=== PATIENT | female | born 1960 | race African-American/Black ===

== ENCOUNTER 2025-07-02 12:02 | Outpatient (CLI) | payer MEDICARE, MEDICAID, SELFPAY ==
[2025-07-02 13:26] LABS: Hematocrit 40.4 % (37.0-47.0); Hemoglobin 12.7 g/dL (12.0-15.0); Immature Granulocyte Percent A 0.1 % (0-0.5); Lymphocytes Absolute Auto 3.52 K/mm3 (0.9-3.2); Mean Corpuscular HGB Conc 31.4 g/dl (32-36); Mean Corpuscular Hemoglobin 26.8 pg (26-34); Mean Corpuscular Volume 85.4 fl (80-100); Nucleated Red Blood Cells Absolute Auto 0.000 K/mm3 (0.0-0.012); Nucleated Red Blood Cells Perc 0.0 % (0.0-0.2); Platelet Count Result 264 k/mm3 (150-375); Red Blood Count 4.73 M/mm3 (4.2-5.4); White Blood Count 6.8 K/mm3 (4.5-10.0)
[2025-07-02 13:42] LABS: Albumin Level 4.4 g/dL (3.5-5.1); Anion Gap 8 mmol/L (4-12); Blood Urea Nitrogen 16 mg/dL (7-17); Calcium 9.0 mg/dL (8.4-10.2); Carbon Dioxide 22 mmol/L (22-30); Chloride 106 mmol/L (98-107); Estimated Glomerular Filt Rate > 60; Glucose 102 mg/dL (65-110); Potassium 3.9 mmol/L (3.4-5.0); Sodium 136 mmol/L (137-145)
[2025-07-02 14:33] LABS: Hemoglobin A1C 6.8 % (<5.7)
== END 2025-07-02 12:03 | disposition home or self-care (01) ==
LOC: ANHSURGERY 12:12
PROVIDERS: PCP Nurse Practitioner Family; Visit Provider Orthopaedic Surgery
DX: M17.0 Bilateral primary osteoarthritis of knee (principal); Z01.818 Encounter for other preprocedural examination
CPT/HCPCS: 80048; 80307; 82040; 83036; 85025; 87081

== ENCOUNTER 2025-07-26 00:55 | Day surgery (SDC) | payer MEDICARE, MEDICAID, SELFPAY ==
[2025-07-02 12:25] VITALS: BP 166/66; PULSE 97; RESP 16; TEMP 36.3; O2SAT 97; BMI 29.6
[2025-07-02 12:44] VITALS: BP 152/74
--- NOTE | 2025-07-02 12:46 | PC.NURSE ---
[facility] has started construction of its new state of the art ER which will open Spring 2026. With this, we anticipate parking may be a challenge for some our surgical patients and families. Parking spaces are limited but are available for all Surgical, obstetrics, and ER patients sharing this lot. If you arrive and find you are having a hard time finding a parking space, please note that we understand the challenges, please drive around the hospital and park near Hospital Entrance 1. When you enter this entrance, you can ask a volunteer to direct or take you back to the surgical waiting area to check in. We appreciate everyone?s understanding of these expected challenges while we build for your future. Report to the Outpatient Waiting Room, entrance under the green pavilion located off [address], at time __0600am on date __07/26/25 . Planned Procedure Time: __0730am .? Time changes happen often and if your time is changed the preop area will call you the afternoon before. - You and your visitor will be asked to self-screen and do not enter if you have any COVID symptoms. Please call surgeon if you need to reschedule. - A mask is optional within the hospital at this time. Patients may have clear liquids (water, carbonated beverages, clear teas, apple juice) until 3 hours prior to surgery with a maximum of 20 ounces. - No food from midnight until time of surgery and no smoking, or chewing tobacco (or any form of nicotine). No chewing gum, candy or mints. (04:30am) Take only the following medications with a SIP of water on the morning of surgery: Amlodipine and Hydrocodone DO NOT STOP ANY OF YOUR OTHER PRESCRIPTION MEDICATIONS PRIOR TO SURGERY EXCEPT THE FOLLOWING Hold all vitamins and supplements for 3 days per anesthesiologist. Medications to discontinue per physician NO NSAIDS/ASPIRIN for [address] Gage Date to take last dose___07/18/25 Please no make-up, nail faroese, hairspray, perfume, deodorant, or body powder the day of surgery.? No jewelry (including any body piercings) or valuables the day of surgery, leave them at home.? Please take a shower or bath the night before, or the morning of, surgery with an antibacterial soap.? Dial Soap and HIBICLEANSE SCRUB as Directed per Dr Clements. Wear comfortable, loose fitting clothing.? Overnight bag, tennis shoes, walker, Cell phone/Fire Boss. - Jewelry must be removed prior to entering the operating room.? Rings and piercings that are not removed may be cut off. - The hospital will not accept responsibility for valuables.? - Please leave all valuables, including medications, at home the day of surgery. If you are going home after surgery, a licensed certified driver examiner must drive you home.? - NO public transportation without another adult if you receive anesthesia. - We recommend that an adult stay with you for 24 hours following discharge. - We also recommend that you do not drive, make important decision, drink alcoholic beverages, or take any drugs that were not prescribed by your health care provider for at least 24 hours after your discharge time. Follow any additional instructions given to you from your surgeon. Telephone instructions given to __Patient and asked if any additional questions and then verbalized understanding. Patient advised to call surgeon office or pre surgery nurse liaison [phone] if any additional questions.
--- NOTE | 2025-07-25 08:56 | P.HP_ITS ---
H&P: [facility] History of Present Illness Date/Time: 07/25/25 08:56 Chief Complaint: BILATERAL KNEE DJD Narrative: HPI: 64-year-old female who presents today for a right total knee arthroplasty with cortisone injection left knee. Patient is having symptoms of pain in both knees for over 4 years. She has been treating this nonsurgically with [id number] anti-inflammatories as well as cortisone injections. She has not had any cortisone injections this year. She has been contemplating total knee arthroplasty for some time. At this point patient feels that she is having severe enough symptoms on a daily basis which is affecting her daily lifestyle. She feels she is ready to proceed with total knee arthroplasty at this point rather than continue nonsurgical treatment. Review of Systems Review of Systems: All systems reviewed & are unremarkable except as noted in HPI and below PMFSH Past Medical History Medical History (Updated 07/12/25 @ 13:32 by Nona Hamilton CMA) Anxiety High blood pressure Surgical History Surgical History (Reviewed 07/12/25 @ 13:32 by Nona Hamilton [facility]) H/O section Social History Social History (Updated 07/12/25 @ 13:28 by Marlena Everett [facility]) Years smoked: 25 Smoking status: Former smoker Tobacco type: cigarettes Second hand tobacco smoke exposure: Yes Smoking end date: 10/11/99 Alcohol intake: current Alcohol use details: 1 per week Substance use: current Substance use type: painkillers Other substance usage details: hydrocodone for pain as needed Do You Feel Safe in your Home?: Yes Lack of Transportation: No Lack of Food: Never True Current Housing: I Have Housing Concerned About Future Housing: No Difficulty Paying Gas/Electric Bills: No Difficulty Paying for Meds: No Currently Unemployed: No Education: Decline to Answer Difficulty w/ Childcare or Family Care: Decline to Answer Living arrangements: with family Additional living arrangements comments: w grandson Spiritual care concerns: No Meds Home Medications and Allergies Home Medications ?Medication ?Instructions ?Recorded ?Confirmed ?Type amlodipine 10 mg tablet 10 mg PO DAILY 04/20/2501/02 History ibuprofen 800 mg tablet 800 mg PO Q6H PRN pain 04/2007/13/25 History propranolol 10 mg tablet 10 mg PO Q12H PRN palpitatio n 04/20/25 07/13/25 History Allergies Allergy/AdvReac Type Severity Reaction Status Date / Time No Known Allergies Allergy Verified 07/12/25 13:29 Exam Narrative: 64-year-old female alert pleasant. BMI is 29.6. She walks with a pronounced limp due to pain in the right lower extremity. Range of motion of the right knee is from 3-135 degrees. Trace effusion. Hip range of motion is full with out discomfort, negative Stinchfield maneuver. She has normal stability in the knee. Moderately severe tenderness to the medial joint line to palpation. Moderate pain with patellofemoral grind. 2+ dorsalis pedis and posterior tibial artery pulse palpable. There is no edema in lower extremities. Resp: Auscultation: clear to auscultation bilaterally Cardio: Rate: regular rate Rhythm: regular rhythm Assessment and Plan Assessment and plan (1) Primary localized osteoarthritis of both knees: Code(s): M17.0 - Bilateral primary osteoarthritis of knee Status: Acute Plan 64-year-old female has [id number] medial compartment osteoarthritis in both knees. At this point the right is more symptomatic than the left. She is ready proceed with total knee arthroplasty at this point. Surgical procedures well as the risks and complications were discussed in detail all questions were answered and we will proceed. Patient will avoid her ibuprofen and any other aspirin products 1 week prior to surgery. She will see her primary care doctor for pre- surgical clearance. She has seen cardiology and has been evaluated and cleared without additional testing. Patient's nasal swab was negative. Hemoglobin 12.7 and platelets were 264. Chem panel was all within normal limits creatinine is 0.65. Patient's A1c was elevated at 6.8. She did have a history of diabetes in the past and was on metformin but was taken off of this when her A1c went down. Patient was advised to contact her primary care doctor to see whether not she should resume taking the metformin, due to this fact she will be on extend postop antibiotics.
[2025-07-26] VITALS (14 sets, daily range): BP systolic 109–151; BP diastolic 54–71; PULSE 85–97; RESP 12–17; TEMP 36.2–36.8; O2SAT 94–100
--- NOTE | ~2025-07-26 | XR_ITS ---
EXAMINATION: [id number], 07/26/2025 11:20 CDT HISTORY: POST-OP RIGHT TKA COMPARISON: No comparisons available. Findings: No acute fracture or malalignment. Arthroplasty intact Soft tissues unremarkable. Impression: No acute fracture or malalignment. Reviewed, dictated and finalized at location P. Impression: No acute fracture or malalignment.
--- OUTSIDE RECORDS SUMMARY | 2025-07-26 00:58 | XMS_ITS | Data Portability ---
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 She has a history of knee osteoarthritis that we have tried treating conservatively. She previously got gel injections in September which did not help. She currently rates her pain as 10/10 having difficulty with walking and daily activities. She has tenderness over the medial joint lines also over the patella. Range of motion 10-130. She has antalgic gait. Stable ligaments. X-rays were reviewed, she has xqvl-wu-rgka arthritis with joint space narrowing, sclerosis, osteophytes in the medial compartment, also degenerative changes of the patellofemoral compartment She has knee arthritis that has failed conservative management. The next step we discussed would be total knee arthroplasty. she has a PCP appointment next month and wants to get it done after that. We will work her to find a suitable time for surgery. Risks, benefits, and alternatives to surgery were discussed with the patient. Risks include but are not limited to pain, stiffness, infection, bleeding, blood clot, injury to other structures including nerves or blood vessels, need for future surgery, and anesthesia risks. We discussed the goal of surgery is to improve symptoms but there is no guarantee of improvement and it is possible the patient's condition is worse after surgery. Patient agreed and would like to proceed. [email or web address] Not available 12/25/2024 13:19:34 03/06/2025 03/06/2025 64-year-old female presents for follow-up of her right knee. She has a history of knee osteoarthritis that we have tried treating conservatively. She previously got gel injections in which did not help. She currently rates her pain as 10/10 having difficulty with walking and daily activities. We discussed doing a TKA, which she was on board with, but she switched her insurance and we do not take her new one. She presents today to discuss options. She has tenderness over the medial joint lines also over the patella. Range of motion 10-130. She has antalgic gait. Stable ligaments. X-rays were reviewed, she has aljr-lb-eqkr arthritis with joint space narrowing, sclerosis, osteophytes in the medial compartment, also degenerative changes of the patellofemoral compartment She has knee arthritis that has failed conservative management. The next step we discussed would be total knee arthroplasty. We do not take her insurance so we will refer her to Dr. Gage. We provided her with his office phone number to make an appointment. She states understanding. [email or web address] Not available 03/06/2025 11:19:28 Plan of Treatment Reminders Order Date Submit Date Provider Last Modified By Organization Details Last Modified Time Details Appointments Any 15 2025 01:30P Good Matson NP Not available Not available Not available Lab HbA1c (hemoglob in A1c), blood 2024 025 [facility], [address] [place], [address], 07/19/2025 12:13:55 Referral orthopedi c surgeon referral - Please call patient to schedule an appointme nt. Thank you. 2024 025 carlo [facility], [address], [place], [address], 07/16/2025 11:40:37 Procedures None recorded. Surgeries None recorded. Imaging None recorded. Medication Orders metformin ER 500 mg 24 hr tablet,ex tended release (gastric retention ) 2024 025 [facility]/Pharmacy #[id number], [address], [place], [address], 07/19/2025 12:13:44 hydrocodo ne 10 mg-acetam inophen 325 mg tablet 2024 025 [facility]/Pharmacy #[id number], [address], [place], [address], 05/29/2025 11:40:17 propranol ol 10 mg tablet 2024 025 [facility]/Pharmacy #[id number], [address], [place], [address], 06/15/2025 05:01:54 Patient TargetsNo targets recorded. Patient InstructionsNo instructions recorded. Reason for Referral Orthopedic Surgeon Referral for Osteoarthritis of right knee joint Please call patient to schedule an appointment. Thank you. Referring Physician: Terrell Matson, Family Medicine, Encounter Date: 01/25/2025 Results Created Date Observation Date Name Description Value Unit Range Abnormal Flag Note LastModifiedBy Organization Detail LastModifiedTime 05/28/2005/25/2025 MAMMO , scree jg, digit al, bilat eral No observ ation record ed. [facility] Him Department [address] [place], [address], 05/28/2025 11:52:42 Result Notes None recorded. Problems Name Problem SNOMED Code Status Onset Date Resolution Date Notes Provider Name and Address Organization Details Recorded Time Wax in ear canal 393024675 Active Not Available [facility] 3 13:00:44 Wound of toenail 746825986 Active Not Available [facility] 3 13:00:45 Depressive disorder 28307076 Active Not Available [facility] 3 13:00:45 Diabetic peripheral neuropathy 622480934 Active Not Available [facility] 3 13:00:45 Pain of shoulder region 08029112 Active Not Available [facility] 3 13:00:45 Subclinica l hypothyroi dism 55020859 Active Not Available [facility] 3 13:00:45 Allergic rhinitis 43338414 Active Not Available [facility] 3 13:00:45 Hyperglyce maria luisa 12491931 Active Not Available [facility] 3 13:00:45 Fatigue 94766699 Active Not Available [facility] 3 13:00:45 Osteoarthr itis of left knee joint 1800615619318 09 Active 2020 Not Available [facility] 3 13:00:45 Osteoarthr itis of right knee joint 1624193617626 00 Active 2020 Not Available [facility] 3 13:00:45 Hyperlipid emia 56153732 Active 2021 Not Available [facility] 3 13:00:45 Pain of right knee joint 4808113234299 00 Active 2021 Not Available [facility] 3 13:00:45 Osteoarthr itis 107962125 Active 2021 Not Available [facility] 3 13:00:45 Chest pain 40564071 Active 2022 Not Available [facility] 3 13:00:45 Vitamin D deficiency 04652789 Active 2022 Not Available [facility] 3 13:00:45 Hypothyroi dism 19324782 Active 2022 Not Available [facility] 3 13:00:45 Pain of bilateral knee joints 7604925226657 04 Active 2022 Not Available [facility] 3 13:00:45 Essential hypertensi on 23025789 Active 2022 Not Available [facility] 3 13:00:45 Bilateral osteoarthr itis of knees 6022592451021 07 Active 2023 Rosa patton, [place] [facility] 4 11:09:03 Pain in left foot 4602409044340 07 Active 2023 TAMY Masters-Micheal [address] [facility], [address], [address] , [place] [facility] 4 12:17:25 Insomnia 130807174 Active 2023 LAURA Masters [address], [address], [place], [address] , [facility] 4 12:30:20 Cellulitis of left foot 8933630457008 9101 Active 2023 LAURA Masters [address], [address], [place], [address] , [facility] 4 12:31:58 Candidiasi s of vagina 01334209 Active 2024 LAURA Masters [address], [address], [place], [address] , [facility] 5 11:09:18 Impacted cerumen of bilateral ears 1612295806776 108 Active 2024 LAURA Masters [address], [address], [place], [address] , [facility] 5 11:16:11 Nocturnal enuresis 3736796 Active 2024 LAURA Masters [address], [address], [place], [address] , [facility] 5 12:19:24 Type 2 diabetes mellitus 97590748 Active 2024 LAURA Masters [address], [address], [place], [address] , [facility] 5 12:13:33 Problem Notes None recorded. Procedures Surgical History Date Name Laterality Status Provider Name and Address Organization Details Recorded Time 09/11/20 24 Orthovisc Injection completed Shruti Bravo PA-C [address], [address], [place], [address], [facility] 09/11/2024 12:27:12 09/04/20 24 Orthovisc Injection completed Isabelle Boykin NP [address], [address], [place], [address], [facility] 09/04/2024 11:54:36 08/28/20 Orthovisc Injection completed Obinna Moran MD [address] [place] [address], [facility] [address], [place], [address], [facility] [employer] [facility] [employer] 08/28/2024 12:25:23 02/24/20 Medicare Wellness CPT Code, subsequent completed Kierra Mott RN [facility] [employer] [facility] 01/20/2024 09:40:56 01/07/20 Medicare Wellness CPT Code, subsequent completed Margaret Matson CMA [facility] [employer] [facility] 01/06/2023 14:09:24 12/07/19 17 colonoscopy completed Not Available [facility] 12/10/19 16:40:12 section completed Not Available [facility] 12/09/2022 16:40:12 Imaging Results None recorded. Procedure Notes None recorded. Medical Equipment None Reported. Allergies Allergen ID Allergen Name Allergen Category Reaction Reaction Severity Criticality Documentation Date Start Date Code Code System Note Provider Name and Address Organization Details Recorded Time 25005 naproxen medicatio n Not available Not available Not available 12/09/2022 7258 RxNorm belly swell ing and throw up black stuff Not Available [facility] 16:42:31 Medications Name Sig Start Date Stop Date Status Note LastModified by Organization Details LastModified Time celecoxib 200 mg capsule TAKE 1 CAPSULE BY MOUTH EVERY DAY 04/20 completed does not work Not Available Not Available Not Available prednisone 10 mg tablet 11/17 completed Not Available Not Available Not Available trazodone 50 mg tablet TAKE 1 TABLET BY MOUTH EVERY DAY active Not Available Not Available No t Available azithromyci n 250 mg tablet TAKE 2 TABLETS (500 MG) BY ORAL ROUTE ONCE DAILY FOR 1 DAY THEN 1 TABLET (250 MG) BY ORAL ROUTE ONCE DAILY FOR 4 DAYS active Not Available Not Available No t Available ibuprofen 800 mg tablet TAKE 1 TABLET BY MOUTH THREE TIMES A DAY NEEDED active Not Available Not Available No t Available fluconazole 150 mg tablet TAKE 1 TABLET BY MOUTH NOW, THEN 1 TABLET IN THREE DAYS IF NEEDED 01/25 completed Not Available Not Available Not Available hydrocodone 5 mg-acetamin ophen 325 mg tablet TAKE 1 TABLET BY MOUTH EVERY 6 HOURS NEEDED 02/11 completed Not Available Not Available Not Available meloxicam 15 mg tablet TK 1 T PO QD AT DINNER PRN active Not Available Not Available No t Available prednisone 20 mg tablet Take 2 tablets every day by oral route for 5 days. active Not Available Not Available No t Available amlodipine 5 mg tablet TAKE 1 TABLET BY MOUTH ONCE DAILY 02/17 completed Not Available Not Available Not Available hydrocodone 10 mg-acetamin ophen 325 mg tablet TAKE 1 TABLET BY MOUTH EVERY 6 HOURS NEEDED active Not Available Not Available No t Available tramadol 50 mg tablet Take 1 tablet every 8 hours by oral route as needed. 01/06 completed Not Available Not Available Not Available levothyroxi ne 25 mcg tablet TK 1 T PO D active Not Available Not Available No t Available prednisone 10 mg tablets in a dose pack Take 1 tab by mouth, 3 times a day for 3 daysTake 1 tab by mouth 2 times a day for 2 daysTake 1 tab by mouth once a day for 1 day 11/17 completed Not Available Not Available Not Available meloxicam 7.5 mg tablet TAKE 1 TABLET BY MOUTH EVERY DAY NEEDED FOR PAIN 04/01 completed Not Available Not Available Not Available propranolol 10 mg tablet TAKE 1 TABLET BY MOUTH THREE TIMES A DAY NEEDED FOR 10 DAYS active Not Available Not Available No t Available Kenalog 10 mg/mL suspension for injection In office injection administe red by the provider 01/06 completed [facility]: 0003- [phone]- [phone] Not Available Not Available Not Available amlodipine 10 mg tablet TAKE 1 TABLET BY MOUTH EVERY DAY active Not Available Not Available No t Available cephalexin 500 mg capsule TAKE 1 CAPSULE BY MOUTH TWICE A DAY 08/31 completed Not Available Not Available Not Available diclofenac sodium 75 mg tablet,marilyn yed release TAKE 1 TABLET BY MOUTH TWICE A DAY NEEDED 01/06 completed Not Available Not Available Not Available neomycin 3.5 mg-polymyxi n 10,000 unit-hydroc ort 10 mg/mL eye drop,susp INSTILL 1 DROP INTO AFFECTED EYE(S) BY OPHTHALMI C ROUTE EVERY 4 HOURS WHILE AWAKE X 7 DAYS 02/01 completed Not Available Not Available Not Available fluticasone propionate 50 mcg/actuati on nasal spray,suspe nsion USE 2 SPRAYS INTO EACH NOSTRIL ONCE EVERY DAY 05/02 completed Not Available Not Available Not Available metformin ER 500 mg tablet,exte nded release 24 hr Take 1 tablet every day by oral route. 2024 active Not Available Not Available Not Avai lable naproxen 500 mg tablet Take 1 tablet twice a day by oral route. 04/01 completed Not Available Not Available Not Available neomycin-po lymyxin-hyd rocort 3.5 mg-10,000 unit/mL-1 % ear drops,susp INT 3 GTS AEA TID FOR 7 DAYS active Not Available Not Available No t Available escitalopra m 10 mg tablet TK 1 T PO D active Not Available Not Available No t Available metformin ER 750 mg tablet,exte nded release 24 hr TAKE 1 TABLET BY MOUTH EVERY DAY AT DINNER 05/31 completed Not Available Not Available Not Available ORTHOVISC 30 mg/2 mL intra-artic ular syringe Inject 2 mL every week by intra-art icular route. 07/19 completed Not Available Not Available Not Available lidocaine (PF) 10 mg/mL (1 %) injection solution In office injection administe red by the provider 11/17 completed [facility]: [phone]- [phone] Not Available Not Available Not Available metformin ER 500 mg 24 hr tablet,exte nded release (gastric retention) Take 1 tablet every day by oral route for 30 days. 2024 active Not Available Not Available Not Avai lable Senna Laxative-St ool Softener 8.6 mg-50 mg tablet Take 2 tablets every day by oral route as needed. 02/01 completed Not Available Not Available Not Available ropivacaine (PF) 5 mg/mL (0.5 %) injection solution Take 20 mg by injection route. 01/06 completed Not Available Not Available Not Available Vitals Date Recorded Body height Body mass index (BMI) Body weight Provider Name and Address Organization Details Last Updated DateTime 12/25/2024 165.1 cm 25.8 kg/m2 65747.82 g MAYRA Strat[place] [facility] [employer] [facility] 12/25/2024 11:55:34 Date Recorded Body height Body mass index (BMI) Body weight Body temperature Heart rate Oxygen saturation Oxygen saturation in Arterial blood by Pulse oximetry Pain severity - 0-10 verbal numeric rating [Score] - Reported Systolic And Diastolic Provider Name and Address Organization Details Last Updated DateTime 5 165.1 cm 24.7 kg/m2 02513.4 7 g 97.3 [degF] 69 /min 98 % 98 % 10 124/66 mm[Hg] Mehnaz Chavez MA [facility] 5 12:08:18 Date Recorded Body height Body mass index (BMI) Body weight Body temperature Heart rate Oxygen saturation Oxygen saturation in Arterial blood by Pulse oximetry Systolic And Diastolic Provider Name and Address Organization Details Last Updated DateTime 5 165.1 cm 26 kg/m2 90307.4 1 g 97.5 [degF] 86 /min 97 % 97 % 130/70 mm[Hg] VIJAY Jones [place] [facility] 5 11:31:06 Date Recorded Body height Body mass index (BMI) Body weight Body temperature Heart rate Oxygen saturation Oxygen saturation in Arterial blood by Pulse oximetry Systolic And Diastolic Provider Name and Address Organization Details Last Updated DateTime 5 165.1 cm 25.8 kg/m2 63391.8 2 g 97.4 [degF] 82 /min 98 % 98 % 120/64 mm[Hg] VIJAY Jones [facility] 5 11:46:22 Social History Question Answer Notes LastModified by Organizat ion Details LastModified Time Tobacco Smoking Status Never Smoker Not Available [facility] 12/09/2022 16:40:07 Do You Have An Advance Directive? No [id number] Information not available 12/09/2022 What Is Your Level Of Caffeine Consumption? Moderate [id number] Information not available 12/09/2022 In The 14 Days Before Symptom Onset, Have You Had Close Contact With A Laboratory-confir med COVID-19 While That Case Was Ill? No [id number] Information not available 12/09/2022 In The 14 Days Before Symptom Onset, Have You Had Close Contact With A Person Who Is Under Investigation For COVID-19 While That Person Was Ill? No [id number] Information not available 12/09/2022 What Type Of Diet Are You Following? REGULAR [id number] Information not available 12/09/2022 Have There Been Any Changes To Your Family Or Social Situation? No Information no t available 01/25/2025 Do You Use Insect Repellent Routinely? No Information not available 01/25/2025 Where Do You Live? SingleLevelHouse Information not available 01/25/2025 What Was The Date Of Your Most Recent Tobacco Screening? 01/25/2025 Information not available 01/25/2025 How Many Children Do You Have? 3 Information not available 01/25/2025 Do You Have Any Pets? No Information not available 01/25/2025 What Is Your Relationship Status? Single Information not available 01/25/2025 Do You Use Your Seat Belt Or Car Seat Routinely? Yes Information not available 01/25/2025 Do You Have Smoke And Carbon Monoxide Detectors In Your Home? Yes Information not available 01/25/2025 Are You Passively Exposed To Smoke? No Information no t available 01/25/2025 Are There Any Smokers In Your House? No Information not available 01/25/2025 Do You Participate In Social Media? Yes Information not available 01/25/2025 Do You Use Sunscreen Routinely? No [id number] Information not available 12/09/2022 Have You Recently Traveled Abroad? No Information not available 01/25/2025 Are You Currently In School? No Information not available 01/25/2025 Do You Have Any Dietary Restrictions? No Information not available 01/25/2025 Sex: Unknown Functional Status Question Answer Note LastModified by Organizat ion Details LastModified Time Do you use any illicit or recreational drugs? No Information not available 01/25/2025 Do you or have you ever used any other forms of tobacco or nicotine? No Information not available 01/25/2025 What is your level of alcohol consumption? Occasional [id number] Information not available 12/09/2022 Are you currently employed? Yes Information not available 01/25/2025 What is your exercise level? Occasional Information not available 01/25/2025 Mental Status Question Answer Note LastModified by Organization D etails LastModified Time Do you feel stressed (tense, restless, nervous, or anxious, or unable to sleep at night)? [id number] [email or web address] Information not available 02/26/2023 Family History Relationship Description Onset Age of this Age Resolved Age Notes LastModified by Organization Details LastModified Time Mother Diabetes mellitus [id number] Not available 12/09/2022 16:40:13 Maternal Aunt Diabetes mellitus [id number] Not available 12/09/2022 16:40:13 Maternal Uncle Diabetes mellitus [id number] Not available 12/09/2022 16:40:13 Sister Diabetes mellitus [id number] Not available 12/09/2022 16:40:13 Notes:father's side unknown Medical History Condition Response BLINDNESS N KIDNEY STONES N MRSA N CARPAL TUNNEL SYNDROME N LUNG DISEASE/DISORDER N HISTORY OF DRUG ABUSE N RADIATION / CHEMOTHERAPY N COPD N SPORTS INJURY N ANKLE PAIN N BLOOD DISEASES N SCHIZOPHRENIA N SHINGLES N SHOULDER PAIN N BOWEL PROBLEMS N DEPRESSION (INCLUDING POST ) N STROKE/TIA N ULCERS N KNEE PAIN N BENIGN PROSTATIC HYPERPLASIA N OBESITY N GERD/NAUSEA N ANEURYSM N URINARY/BLADDER/KIDNEY PROBLEMS N CORONARY ARTERY DISEASE (CAD) N ADDICTION CONCERNS N USE OF BLOOD THINNERS N SKIN PROBLEMS N EMPHYSEMA N MUSCLE,JOINT OR BONE PROBLEMS N DVT N STOMACH ULCERS N BLOOD CLOTS N USE OF NSAIDS N CONCUSSION OR SPINAL TRAUMA N NEUROPATHY N AIDS/HIV N FRACTURES N HYPERTENSION N ELBOW PAIN N TOURETTE'S N Metal allergy N ANXIETY DISORDER N BLOOD TRANSFUSION N ANEMIA/BLOOD DISORDER N BIPOLAR DISORDER N BRONCHITIS N OSTEOARTHRITIS N TUBERCULOSIS N FOOT PROBLEM N HEART VALVE DISORDERS N ALLERGIES/HAYFEVER N SOFT TISSUE INJURY N INFECTIOUS DISEASE N HEART ARRHYTHMIA N INSOMNIA N HIGH CHOLESTEROL / HYPERLIPIDEMIA N RHEUMATOID ARTHRITIS N EDEMA N CHRONIC PAIN SYNDROME N CAROTID BLOCKAGE N BACK / NECK PROBLEMS N HAVE YOU BEEN HOSPITALIZED OR SEEN IN [facility] IN THE PAST YEAR ? N BURSITIS N HERNIATED DISC N DIALYSIS N FIBROMYALGIA N OSTEOPOROSIS N ARTHRITIS Y NO SIGNIFICANT PAST MEDICAL HISTORY N PERIPHERAL NEUROPATHY N DIABETES, TYPE N HEARTBURN / REFLUX N HEPATITIS / LIVER DISEASE N GOUT N ALZHEIMER'S DISEASE N SLEEP DISORDER N HERPES N HEADACHES/MIGRAINES N SEIZURES/EPILEPSY N VASCULAR DISEASE N Blood Disorder N HIP PAIN N DIZZINESS N HEAD TRAUMA OR INJURY N HEART DISEASE/HEART PROBLEMS N MULTIPLE SCLEROSIS N CANCER: SPECIFY N CARDIAC ARRHYTHMIA N ANESTHESIA COMPLICATIONS N ATRIAL FIBRILLATION N AUTOIMMUNE DISEASE N Gynecological History Statement/Question Response How many live births 3 Abnormal Pap N Date of LMP Sexually Active? N Dislike of Light during Menstrual Headac he N Menses Monthly N STIs/STDs N Current Control Method Menopause Breast Problems no Discharge no Obstetrics History GPAL:G 3 P 3 0 0 3 Type Value Multiple Births 0 Full Term 3 Induced 0 Spontaneous 0 Premature 0 Living 3 Ectopics 0 Total 3 Immunizations Vaccine Type Date Status Note Provider Nam e and Address Organization Details Recorded Time pneumococcal polysaccharide PPV23 5 completed Not Available [facility] 03/13/2023 13:00:45 Influenza, split virus, quadrivalent, PF 4 completed Not Available [facility] 03/13/2023 13:00:45 Past Encounters Encounter ID Performer Location Encounter Start Date Encounter Closed Date Diagnosis/Indication Diagnosis SNOMED-CT Code Diagnosis ICD10 Code Diagnosis IMO Codes Diagnosis Note [id number] Melonie Beltran MD [facility] Primary Care [address] [place] [address] 03/18/2021 00:00:00 03/18/2021 11:57:54 [id number] Melonie Beltran MD [address] [place] [address] 08/04/2021 00:00:00 08/04/2021 11:47:43 [id number] Channing Charles MD [address] [address] 08/19/2021 00:00:00 08/19/2021 12:00:56 [id number] Channing Charles MD [facility] [address] [address] 10/07/2021 00:00:00 10/07/2021 09:45:44 [id number] Melonie Beltran MD [facility]_[address] [place] [address] 11/17/2021 00:00:00 11/17/2021 11:17:37 [id number] MATTHEW Bryant S_[facility] [place] [place] Primary Care [address] [place] [address] 02/10/2022 00:00:00 02/10/2022 12:33:19 [id number] Channing Charles MD [facility]_[address] [address] 03/31/2022 00:00:00 03/31/2022 10:34:32 [id number] MATTHEW Bryant S_[facility] [place] [place] Primary Care [address] [place] [address] 04/20/2022 00:00:00 04/20/2022 11:25:56 [id number] Channing Charles MD [address] [address] 06/30/2022 00:00:00 06/30/2022 10:19:58 [id number] Channing Charles MD [address] [address] 08/11/2022 00:00:00 08/11/2022 10:56:47 [id number] Melonie Beltran MD [facility] [place] [place] Primary Care [address] [place] [address] 01/06/2023 13:58:35 01/06/2023 15:22:04 Chest pain 16332229 R07.9 EKG abnormalpt scheduled for knee replacemen t surgery in late Januarywill refer to cardiology for evaluation , ER if chest pain occurs again in meantime Vitamin D deficiency 347 77761 E55.9 Diabetic p eripheral neuropathy 925638296 E11.40 Hypothyroidism 98456635 E03.9 Pain of bi lateral knee joints 5104423438 91987 M25.561 M25.562 use sparingly, d/c NSAIDs due to GI distressdo not take before driving/wo rkingsched uled for knee replacemen t surgery in January Hyperlipidemia 50802580 E78.5 Z79.899 Essential hypertension [id number] I10 stay physically activedecr ease salt in dietdiabet ic dietbegin amlodipine 5 mg dailyf/u in 2 weeks [id number] Channing Charles MD [facility] [address], [address] [place] [address] 01/12/2023 10:16:56 01/12/2023 11:14:24 Pain of right knee joint [id number] 35445 M25.561 [id number] Melonie Beltran MD [facility] [place] [place] Primary Care [facility] [address] [address] [place] [address] 01/25/2023 16:24:02 01/25/2023 17:33:55 Osteoarthritis of left knee joint [id number] 10611 M17.12 M17.11 Essential hypertension 05646166 I10 continue amlodipine 5 mg dailymuch improved [id number] TAMY Lopez [facility] Primary Care [facility] [address] [facility] [address] [place] [address] 02/26/2023 09:56:10 02/26/2023 10:23:28 Essential hypertension 82210138 I10 Not in good controlSym ptomatic with dizziness, chest tightness, arm pain, palpitatio ns, and panic attacks.Ca rdiology notes from Dr. Cruz indicate no significan t concerns on echo (02/15/23) or stress test (02/15/23).P atient seems confused about medication instructio ns. Advised that Dr. Cruz wants her to be on the amlodipine 10mg daily. Advised to stop taking the 5mg dose. Pt is very anxious. A prn BB will likely help lower bp and HR, as well as reducing anxiety sx.Resume amlodipine 10mg dailyStart propranolo l 10mg TID PRN for anxiety or bp greater than 150/90.Enc ouraged pt to increase water intake, reduce caffeine intake, exercise regularly, decrease/e liminate sodium intake, work on stress reductionW ill continue to monitor closely. [id number] TAMY Lopez [facility] Primary Care [facility] [address] [facility] [address] [place] [address] 03/26/2023 10:48:04 03/26/2023 13:55:57 Essential hypertension 17147214 I10 Much improved since last visit with resumption of amlodipine and addition of propranolo l.Was previously symptomati c with dizziness, chest tightness, arm pain, palpitatio ns, and panic attacks. Asymptomat ic with improving bpsContinu e amlodipine 10mg dailyConti nue propranolo l 10mg TID PRN for anxiety or bp greater than 150/90.Enc ouraged pt to increase water intake, reduce caffeine intake, exercise regularly, decrease/e liminate sodium intake, work on stress reductionW ill continue to monitor closely. Pain of bi lateral knee joints [id number] 90969 M25.561 M25.562 Chronicrig ht > leftPt advised to continue with pain meds as directed and schedule f/u with ortho to discuss surgery. [id number] Melonie Beltran MD [facility] [place] [place] Primary Care [address] [place] [address] 02/24/2024 11:15:38 02/24/2024 12:02:01 Adult health examination [id number] Z00.00 Screening for disorder 815596433 Z13.9 Diabetes m ellitus screening 396115136 Z13.1 Hyperlipid emia screening 005628257 Z13.220 Thyroid di sorder screening 494130587 Z13.29 Anemia screening 3658193 07 Z13.0 Screening for malignant neoplasm of breast 993368687 Z12.39 Essential hypertension 45200370 I10 -pt noted recent incident where she was having chest pain, couldn't catch her breath-she stopped taking her propranolo l and notes improvemen t in symptoms, although chest pain still continues occ-checks bps at home daily, notifies cardiologi st office once/month -bp 176/84, 82 [id number] Zac Zarco, APPLI[employer]S COUNTER CLERK-C [facility] [place] [place] Primary Care [facility] [address] [facility] [address] [place] [address] 04/07/2024 12:05:32 04/07/2024 13:50:50 [id number] Obinna Moran MD [facility]_[address], [address] [place] [address] 05/22/2024 10:09:17 05/22/2024 11:08:23 Pain of bilateral knee joints 6252193129 68573 M25.569 Bilateral osteoarthritis of knees 9825341419 43853 M17.0 [id number] LAURA Mastesr [facility] [place] [place] Primary Care Linda shipman [address] [facility] [address] [place] [address] 06/15/2024 11:51:45 06/15/2024 12:36:16 Osteoarthritis of left knee joint 2200857225 72030 M17.12 UDS UTD.[place] verifiedof fice visit 06/15/24Pati ent is scheduled to see pain management next week.Kami nt still sees orthopedic s, needs bilateral knee replacemen ts however she had to get some other issues fixed first. Osteoarthr itis of right knee joint 2880153192 28915 M17.11 Patient is scheduled to see pain management next week.Kami nt still sees orthopedic s, needs bilateral knee replacemen ts however she had to get some other issues fixed first. Pain in left foot 553321 9922 15409 M79.672 Insomnia 267818474 G47.0 0 Patient does not get restful sleep, is up at least every 2 hours-some times moreTried Melatonin however she did not like the way it made her feel. Cellulitis of left foot [id number] 4531544 L03.116 heel is red, swollen and tender to touchwill treat as listed below, patient will follow up as needed. [id number] Obinna Moran MD [facility]_[address], [address] [place] [address] 08/28/2024 11:28:54 08/28/2024 11:53:07 Bilateral osteoarthritis of knees 8051848858 26009 M17.0 [id number] Obinna Moran MD [facility]_[address], [address] [place] [address] 09/04/2024 11:35:31 09/04/2024 11:57:20 Osteoarthritis of right knee joint 2745589313 64971 M17.11 Pain of bi lateral knee joints 4570147564 81663 M25.569 Bilateral osteoarthritis of knees 7612680240 08520 M17.0 [id number] Obinna Moran MD Alexandre_[address], [address] [place] [address] 09/11/2024 11:40:12 09/11/2024 12:10:47 Bilateral osteoarthritis of knees 7275898222 94166 M17.0 [id number] LAURA Masters [facility] Primary Care [facility] [address] [facility] [address] [place] [address] 10/30/2024 10:56:03 10/30/2024 11:34:07 [facility] 89936446 B37.31 Will treat as listed below. Patient will follow up as needed. Osteoarthr itis of left knee joint 7467216930 12429 M17.12 [address] verified[address] refill: 09/15/24la st appt: 10/30/24 Impacted c erumen of bilateral ears 4028800745 611784 H61.23 large amounts of cerumen removed from bilateral ears with irrigation and currette. [id number] MD DEVIN CosmeKim [facility] [address] [address] 12/25/2024 11:44:07 12/25/2024 12:19:13 Osteoarthritis of right knee joint 7854006014 30257 M17.11 Bilateral osteoarthritis of knees 7781407432 01290 M17.0 [id number] LAURA Masters [facility] Primary [address] [place] [address] 01/25/2025 12:01:10 01/25/2025 12:36:02 Osteoarthritis of right knee joint 0287305171 07569 M17.11 Scheduled for R TKA on 02/08/[address] Moran, insurance is changing from [facility] to [facility]. Nocturnal enuresis 01875 08 N39.44 [id number] MD [facility] [address] [place] [address] 03/06/2025 11:02:39 03/06/2025 11:17:10 Bilateral osteoarthritis of knees 4017125078 27492 M17.0 [id number] LAURA Masters [facility] Primary [facility] [address] [place] [address] 05/29/2025 11:19:59 05/29/2025 11:39:12 Osteoarthritis of left knee joint 4876230392 24633 M17.12 [place] [address] verified[place] st refill: 01/11/25la st appt: 01/25/25 Essential hypertension 69764537 I10 [id number] LAURA Masters [facility] [place] [place] Primary Care [place] [address] [facility] [address] [place] [address] 07/19/2025 11:27:42 07/19/2025 12:15:46 Type 2 diabetes mellitus 88860930 E11.9 [id number] Health Concerns Section Related Observation LastModified by Organization Detai ls LastModified Time None Recorded Concern Status LastModified by Organization Details LastModified Time None Recorded Advance Directives Directive N: Payers Insurance Date Sequence Insurance Name Policy Number Policy Joshi Covered Member ID Joshi Member ID Guarantor Name 05/29/2025 1 [employer] - GOLD PLUS (MEDICARE REPLACEMENT/A DVANTAGE - HMO) [id number] Jacki A Vincent [id number] Jacki Vincent 05/29/2025 3 [place] Jacki Vincent [id number] Jacki Vincent 05/29/2025 1 [employer] (MEDICARE REPLACEMENT/A DVANTAGE - PPO) [id number] Jacki A Vincent [id number] Jacki Vincent 07/16/2025 2 [place] WHEN MEDICARE OR MEDICARE REPLACEMENT PRIMARY) Jacki Vincent [id number] Jacki Vincent 05/29/2025 1 [employer] [place] - [place] ON OR AFTER 2020 (MEDICAID REPLACEMENT - HMO) Jacki Vincent [id number] Jacki Vincent 07/23/2025 1 [facility] (MEDICARE REPLACEMENT/A DVANTAGE - PPO) [id number] Jacki A Vincent [id number] Jacki Vincent 07/19/2025 3 [place] [facility] - DOS ON OR AFTER 2025 (MEDICAID REPLACEMENT - HMO) [id number] Jacki Vincent [id number] Jacki Vincent Notes Date Note Type Note Provider Name and Address Organization Details Recorded Time 01/25/2025 text/html ROS as noted in the HPI Patient is a 64 year old female that presents to the office for 3 month follow up. LAURA Masters [employer], [place], [address], [place] 01/25/2025 12:34:59 05/29/2025 text/html ROS as noted in the HPI Patient is a 64 year old female that presents to the office for surgical clearance. Patient is going to have a right knee replacement with Dr. Giron, surgery is not scheduled yet. Patient had surgical clearance completed by Dr. Cruz, cardiology. LAURA Masters [address], [place], [address], [place] 05/29/2025 11:44:01 07/19/2025 text/html ROS as noted in the HPI Patient is a 64 year old female that presents to the office to discuss A1c from recent pre-surgery labs. Patient is scheduled for knee replacement on 07/26, A1c was 6.8-patient was previously on Metformin however it was discontinued by previous provider. LAURA Masters [address] [employer], [address], [place], [address], [place] 07/19/2025 13:51:08 OBGyn Episode No OBEpisode recorded.
[2025-07-26] MEDS: TRANEXAMIC ACID 1,000MG/ISO100 1,000 MG/100 ML BAG 200 MG IVPB (07:00)
[2025-07-26] MEDS: ACETAMINOPHEN 500 MG TABLET 1000 MG PO (07:00)
[2025-07-26] MEDS: VANCOMYCIN HCL 1,000 MG in SODIUM CHLORIDE 0.9% IV 250 ML 250 MG IVPB ×2 (07:00→18:43)
--- NOTE | 2025-07-26 07:11 | WPDANESEPPF ---
Anes - Initial Pre Proc Eval Procedure: Operation Date: 07/26/25 07:30 Proposed Procedures p Right Total Knee Arthroplasty, Left Knee Cortisone Injection - Cj Gage MD Date/Time: 07/26/25 07:11 Surgeon: Cj Gage MD Pre Op Diagnosis: OA Bilateral knee's Patient Data Age: 64 Gender: F Height: 1.55 m Weight: 71.1 kg Last Vital Signs Temp 36.3 C L 07/02/25 12:25 Pulse 97 07/02/25 12:25 Resp 16 07/02/25 12:25 BP 152/74 H 07/02/25 12:44 Pulse Ox 97 07/02/25 12:25 O2 Del Method Room Air 07/02/25 12:25 Allergies Allergy/AdvReac Type Severity Reaction Status Date / Time No Known Allergies Allergy Verified 07/12/25 13:29 Home Medications ?Medication ?Instructions ?Recorded ?Confirmed ?Type amlodipine 10 mg tablet 10 mg PO DAILY 04/20/25 07/13/25 History ibuprofen 800 mg tablet 800 mg PO Q6H PRN pain 04/20/25 07/13/25 History propranolol 10 mg tablet 10 mg PO Q12H PRN palpitation 04/20/25 07/13/25 History metformin 500 mg tablet,extended 500 mg PO DAILY 07/26/25 07/26/25 History release 24 hr Laboratory Tests 07/26/25 07/26/25 06:35 07:05 POC Capillary Glucose 106 H mg/dl (65-105) Blood Type Pending Antibody Screen Pending Patient hx anesthesia problems: none Family hx anesthesia problems: none Results Review: All pre-operative results and documents have been reviewed as part of the pre-operative evaluation. [facility] Past Medical History Medical History Anxiety High blood pressure Surgical History Surgical History H/O section Social History Social History Years smoked: 25 Smoking status: Former smoker Tobacco type: cigarettes Second hand tobacco smoke exposure: Yes Smoking end date: 10/11/99 Alcohol intake: current Alcohol use details: 1 per week Substance use: current Substance use type: painkillers Other substance usage details: hydrocodone for pain as needed Do You Feel Safe in your Home?: Yes Lack of Transportation: No Lack of Food: Never True Current Housing: I Have Housing Concerned About Future Housing: No Difficulty Paying Gas/Electric Bills: No Difficulty Paying for Meds: No Currently Unemployed: No Education: Decline to Answer Difficulty w/ Childcare or Family Care: Decline to Answer Living arrangements: with family Additional living arrangements comments: w [facility] Spiritual care concerns: No Anes - Eval Final PreProcedure Day of Procedure 07/26/25 07:11 Patient weight: overweight Heart: regular rate and rhythm Lungs: clear to auscultation Airway: Mallampati scale class III Neurological: alert and oriented Last oral intake: >/= 8 hours ASA classification: III Emergent: no Anesthetic plan: proceed Anesthesia type and monitoring: general ETT and standard monitoring Results Review: All pre-operative results and documents have been reviewed as part of the pre-operative evaluation. Informed Consent: The patient's anesthetic plan and its attendant risks and benefits were discussed with the patient/family/POA. Questions were solicited and answers provided to the satisfaction of the patient/family/POA.
--- NOTE | 2025-07-26 07:16 | WPDHPUPDATE1 ---
History and Physical Update Update Date/Time: 07/26/25 07:16 History and Physical has been reviewed, including an updated exam of the patient. There are NO changes in the patient's condition. Risks, benefits, and alternatives have been discussed and questions answered. Patient agrees to proceed with procedure.
[2025-07-26] MEDS: LACTATED RINGERS 1,000 ML 30 ML IV CONT ×2 (07:22→11:14)
[2025-07-26] MEDS: ceFAZolin 2 GM in SODIUM CHLORIDE 0.9% IV 50 ML 100 ML IVPB ×2 (07:36→15:02)
[2025-07-26] MEDS: SODIUM CHLORIDE 0.9% IV 37.7 ML, MORPHINE SULFATE INJ (*CRX) 2 MG, ROPivacaine HCL 1% 2... INFILTRATE (08:24)
[2025-07-26] MEDS: methylPREDNISolone ACETATE 80 MG/ML VIAL IM (08:26)
[2025-07-26] MEDS: LIDOCAINE 1% LOCAL INJ 10 ML VIAL 4 ML INFILTRATE (08:28)
[2025-07-26] MEDS: TRANEXAMIC ACID 1,000 MG/10 ML AMPUL 1000 MG IV PUSH (09:55)
--- NOTE | 2025-07-26 11:20 | W.PM.PROC2 ---
Procedure Note - Detailed Date of Procedure 07/26/25 Pre-op Diagnosis OA Bilateral knee's Post-op Diagnosis Same Procedure Performed Right total knee arthroplasty, cortisone injection left knee Surgeon Cj Gage MD Senior It Business Analyst parker Anesthesia General Description of Procedure Patient was brought to the operating room and general anesthesia was administered. She received 2 g of Ancef weight based vancomycin 1 g of tranexamic TXA preoperatively. The left knee was prepped with more call chlorhexidine and 80 mg of Depo-Medrol and 4 cc 1% lidocaine were injected into the left knee without difficulty. The right knee was prepped draped usual fashion. She had about a 3 degree flexion contracture. Limb was exsanguinated tourniquet elevated to 250 mmHg. A 7 in longitudinal midline incision was used and a standard parapatellar arthrotomy utilized. Partial excision of infrapatellar fat pad was performed and quadriceps synovectomy carried out. The patella had chondromalacia of distal 1/2 and had normal contour. Lateral patellar osteophyte was removed. Minimal lateral facetectomy performed. A guide shaun was inserted on femoral canal after aspiration of canal contents using the 5 degree valgus cutting bushing, 9 mm of bone was removed the distal femur. Next the tibial plateau was cut make a skim cut off the point of medial tibial plateau. This removed about 8 laterally. Meniscal remnants were excised in the PCL recessed. Flexion gap measured 8 mm medially and 12 mm laterally. The femoral sizing guide was applied to the distal femur set at 4? of external rotation which matched Whitesides line. Posterior referencing pinholes were placed and the the size 60 vanguard AP cutting blocks applied AP and chamfer cuts were made. This gave us a cut flush with the anterior cortex and fit line to line with less than 1 mm of lateral overhang. Bone quality was excellent throughout. Tibia was sized to a 63 which fit line to line anteromedial to posterolateral at proper rotation. This was punched. Some of the medial tibial osteophyte was removed without releasing the capsule as she did not have a significant varus deformity. On trialing, we were a little bit tight medially at 90?. An additional 1/2 mm of bone was removed the tibial plateau and after re punching tibia the soft tissue tension was now appropriate with 2 mm medial 2 mm of lateral lobe at 90? with the 10 mm insert. We lacked about 3 or 4? of extension therefore an additional mm of bone was removed the distal femur. Posterior femoral osteophyte was removed. On trialing we had a barely positive bounce. There was 2 mm of medial opening and 2 mm lateral opening in this position therefore posterior capsular release was performed from the femur and with this the knee came out to full extension with negative bounce with the arthrotomy approximated with towel clips. The tourniquet had been put down at 80 minutes and limb was re-exsanguinated tourniquet elevated to 250. Lug holes were drilled in the femur and step drill used to make multiple perforations in the tibial plateau and distal femur. Bony surfaces were thoroughly irrigated and dried. Using 2 batches of methylmethacrylate 1 the gentamicin powder, the cement was immediately applied to the tibial component and the femoral component. Cement applied to the tibia and pressurized. The size 63 tibia was impacted onto the tibia and fully seated.. Cement cement applied to the femur. The size 60 femoral right cruciate retaining component was fully seated. The knee was brought into extension with an 11 mm 5 in 1 insert the knee brought into extension for pressurization tourniquet released at about 95 minutes total tourniquet time. After cement hardening excess cement was sought for removed and hemostasis was achieved. We trialed with the 10 insert at the same range of motion stability findings as above. There was central patellar tracking throughout range of motion. The real 10 insert was placed locked with the locking pin range of motion stability reconfirmed. Local anesthetic cocktail was injected in the periarticular soft tissues. Arthrotomy was closed with 2. Like was a 1. Unidirectional barbed Stratafix suture skin closed with 2 subcutaneous Vicryl 3-0 subcuticular Monocryl and glue. EBL 150 cc. Two additional g as a 1 g TXA given time wound closure. No known complications. [facility] Billing Surgery - Charge Forward: Surgery Billing (Right total knee replacement, cortisone shot left knee)
[2025-07-26] MEDS: fentaNYL CITRATE INJ (*CRX) 100 MCG/2 ML VIAL 25 MCG IV PUSH ×3 (11:27→11:45)
--- NOTE | 2025-07-26 13:42 | ADMGEN ---
This patient, Jacki Vincent, was admitted to [facility] Surg Room 329-01. Patient/family oriented to hospital policies and general routines including ID bracelet, bed and alarms, visiting hours, pain management, procedures, bathroom and other care routines, personal items, smoking policy, room service/diet, and visiting hours. Information on how to activate the Rapid Response Team has been discussed. Patient/Family are encouraged to report perceived risks to care and to ask questions if they do not understand what they are told or what they should do.
[2025-07-26] MEDS: SODIUM CHLORIDE 0.9% IV 1,000 ML 125 ML IV CONT (14:56)
[2025-07-26] MEDS: ACETAMINOPHEN 325 MG TABLET 650 MG PO ×3 (14:57→20:21)
[2025-07-26] MEDS: oxyCODONE HCL (*CRX) 5 MG TAB IR PO ×3 (14:58→20:21)
[2025-07-26] MEDS: KETOROLAC 15 MG/ML VIAL (*BKC) 7.5 MG IV PUSH ×2 (14:58→18:42)
--- NOTE | 2025-07-26 15:39 | PCOTNOTE ---
Hold per RN at 1421 due to patients anesthetics not yet wearing off.
[2025-07-26] MEDS: SENNA/DOCUSATE SODIUM TABLET 2 TAB PO (18:32)
[2025-07-27] MEDS: ceFAZolin 2 GM in SODIUM CHLORIDE 0.9% IV 50 ML 100 ML IVPB ×2 (00:06→09:08)
[2025-07-27] MEDS: oxyCODONE HCL (*CRX) 5 MG TAB IR PO ×3 (00:06→09:09)
[2025-07-27] MEDS: ACETAMINOPHEN 325 MG TABLET 650 MG PO ×3 (00:06→09:09)
[2025-07-27 00:41] VITALS: BP 129/62; PULSE 84; RESP 16; TEMP 37.2; O2SAT 97
[2025-07-27 05:07] VITALS: BP 115/67; PULSE 86; RESP 18; TEMP 36.8; O2SAT 98
[2025-07-27] MEDS: VANCOMYCIN HCL 1,000 MG in SODIUM CHLORIDE 0.9% IV 250 ML 250 MG IVPB (06:54)
--- NOTE | 2025-07-27 07:10 | PM.PNORT ---
Subjective Subjective Date/Time Seen: 07/27/25 07:10 Interval history: Postop day 1 patient is alert. She is afebrile vital signs are stable. Morning labs are not been completed yet. Patient states her pain is well controlled. She was up yesterday walking with therapy and is comfortable. She remains comfortable this morning. Dressing is dry and intact. Neurovascularly she is intact. Overall patient is doing very well. We will plan have the patient work with therapy this morning and if she continues to do well she will be discharged home after IV antibiotics have been completed. We will check on labs later this morning once that been completed. Objective Data Vital Signs Vital Signs: Vital Signs - 24 hr 07/26/25 11:14 07/26/25 11:30 07/26/25 11:45 Temperature 98.0 F Pulse Rate 95 90 88 Respiratory Rate 12 12 12 Blood Pressure 112/62 118/62 125/63 Pulse Oximetry 100 99 98 Oxygen Delivery Simple Face Mask Simple Face Mask Nasal Cannula Oxygen Flow Rate 8 8 3 07/26/25 12:00 07/26/25 12:15 07/26/25 12:20 Temperature Pulse Rate 94 88 97 Respiratory Rate 12 12 14 Blood Pressure 132/64 109/54 L 129/67 Pulse Oximetry 98 98 99 Oxygen Delivery Nasal Cannula Nasal Cannula Nasal Cannula Oxygen Flow Rate 2 2 2 07/26/25 12:35 07/26/25 13:00 07/26/25 13:15 Temperature 97.9 F 98.2 F Pulse Rate 93 88 86 Respiratory Rate 12 14 14 Blood Pressure 117/66 124/67 117/69 Pulse Oximetry 99 94 96 Oxygen Delivery Nasal Cannula Oxygen Flow Rate 2 07/26/25 13:45 07/26/25 14:45 07/26/25 18:23 Temperature 97.6 F 97.8 F 97.6 F Pulse Rate 88 91 89 Respiratory Rate 12 14 16 Blood Pressure 127/68 132/65 134/59 L Pulse Oximetry 99 99 100 Oxygen Delivery Oxygen Flow Rate 07/26/25 20:21 07/26/25 21:41 07/27/25 00:41 Temperature 97.4 F L 99 F Pulse Rate 85 84 Respiratory Rate 17 16 Blood Pressure 119/61 129/62 Pulse Oximetry 97 97 Oxygen Delivery Room Air Oxygen Flow Rate 07/27/25 05:07 Temperature 98.3 F Pulse Rate 86 Respiratory Rate 18 Blood Pressure 115/67 Pulse Oximetry 98 Oxygen Delivery Oxygen Flow Rate Intake/Output Intake/Output: Intake & Output 07/24/25 07/25/25 07/26/25 07/27/25 23:59 23:59 23:59 23:59 Intake Total 1090 Balance 1090 Meds/Results Medications: Active Medications Generic Name Dose Route Start Last Admin Trade Name Freq PRN Reason Stop Dose Admin Acetaminophen 650 mg 07/26/25 13:00 07/27/25 05:17 Acetaminophen 325 Mg Tablet PO 650 mg Q4HR VALERIE Administration Amlodipine Besylate 10 mg 07/27/25 09:00 Amlodipine Besylate 10 Mg Tablet PO DAILY [facility] Apixaban 2.5 mg 07/27/25 09:00 Apixaban 2.5 Mg Tablet PO Q12HR [facility] Celecoxib 200 mg 07/27/25 08:00 Celecoxib 200 Mg Capsule PO DAILY@0800 [facility] Dextrose 12.5 gm 07/26/25 12:38 Dextrose 50% 25 Gm/50 Ml Syringe IV PUSH PRN PRN Hypoglycemia Protocol Doxycycline Hyclate 100 mg 07/27/25 09:00 Doxycycline Hyclate 100 Mg Tablet PO 08/08/25 08:59 Q12HR [facility] Glucagon 1 mg 07/26/25 12:38 Glucagon For Inj 1 Mg Vial IM PRN PRN Hypoglycemia Protocol Glucose 15 gm 07/26/25 12:38 Glucose Oral Gel 15 Gm Of Glucse In 37.5 Gm Tube PO PRN PRN Hypoglycemia Protocol Dextrose 1,000 mls @ 100 mls/hr 07/26/25 12:38 Dextrose 5% 1,000 Ml IVPB PRN PRN Hypoglycemia Protocol Vancomycin HCl 1,000 mg/ 250 mls @ 250 mls/hr 07/26/25 19:00 07/27/25 06:54 Sodium Chloride IVPB 07/27/25 07:59 250 mls/hr Q12H VALERIE Administration Cefazolin Sodium 2 gm/ Sodium 50 mls @ 100 mls/hr 07/26/25 16:00 07/27/25 00:06 Chloride IVPB 07/27/25 08:29 100 mls/hr Q8H VALERIE Administration Metformin HCl 500 mg 07/27/25 09:00 Metformin Hcl Xr 500 Mg Tab.Sr.24h PO DAILY [facility] Morphine Sulfate 2 mg 07/26/25 12:38 Morphine Sulfate (*Crx) 4 Mg/Ml Inj IV PUSH Q1H PRN Pain Rated 7-10 Naloxone HCl 0.1 mg 07/26/25 12:38 Naloxone Hcl 0.4 Mg/Ml Vial IV PUSH Q2M PRN Opiate Reversal Ondansetron HCl 4 mg 07/26/25 12:38 Ondansetron Inj 4 Mg/2 Ml Vial IV PUSH Q4H PRN Nausea And Vomiting Oxycodone HCl 5 mg 07/26/25 13:00 07/27/25 05:17 Oxycodone Hcl (*Crx) 5 Mg Tab Ir PO 5 mg Q4HR VALERIE Administration Oxycodone HCl 5 mg 07/26/25 12:38 Oxycodone Hcl (*Crx) 5 Mg Tab Ir PO Q4H PRN Pain Rated 7-10 Polyethylene Glycol 17 gm 07/27/25 09:00 Polyethylene Glycol 3350 17 Gm Powd.Pack PO QAM VALERIE Propranolol HCl 10 mg 07/26/25 12:38 Propranolol Hcl 10 Mg Tablet PO Q12H PRN palpitation Senna/Docusate Sodium 2 tab 07/26/25 17:00 07/26/25 18:32 Senna/Docusate Sodium Tablet PO 2 tab BID VALERIE Administration Radiology Results: ITS Impressions Knee X-Ray 07/26/25 11:44 Impression: No acute fracture or malalignment. Labs Labs: Laboratory Results - last 24 hr 07/26/25 07/26/25 07/26/25 06:35 11:19 16:45 POC Capillary Glucose 181 H 148 H Blood Type O Positive Antibody Screen Negative 07/26/25 21:59 POC Capillary Glucose 142 H Blood Type Antibody Screen
[2025-07-27 07:51] LABS: Hematocrit 30.2 % (37.0-47.0); Hemoglobin 9.6 g/dL (12.0-15.0); Immature Granulocyte Percent A 0.6 % (0-0.5); Lymphocytes Absolute Auto 2.31 K/mm3 (0.9-3.2); Mean Corpuscular HGB Conc 31.8 g/dl (32-36); Mean Corpuscular Hemoglobin 27.4 pg (26-34); Mean Corpuscular Volume 86.0 fl (80-100); Nucleated Red Blood Cells Absolute Auto 0.000 K/mm3 (0.0-0.012); Nucleated Red Blood Cells Perc 0.0 % (0.0-0.2); Platelet Count Result 229 k/mm3 (150-375); Red Blood Count 3.51 M/mm3 (4.2-5.4); White Blood Count 12.6 K/mm3 (4.5-10.0)
[2025-07-27 08:13] LABS: Anion Gap 7 mmol/L (4-12); Blood Urea Nitrogen 15 mg/dL (7-17); Calcium 8.5 mg/dL (8.4-10.2); Carbon Dioxide 23 mmol/L (22-30); Chloride 107 mmol/L (98-107); Estimated CRCL calculation 55 ml/min; Estimated Glomerular Filt Rate > 60; Glucose 174 mg/dL (65-110); Potassium 4.3 mmol/L (3.4-5.0); Sodium 137 mmol/L (137-145)
[2025-07-27 09:07] VITALS: BP 113/58; PULSE 100; RESP 14; O2SAT 96
[2025-07-27] MEDS: metFORMIN HCL XR 500 MG TAB.SR.24H PO (09:09)
[2025-07-27] MEDS: CELECOXIB 200 MG CAPSULE PO (09:09)
[2025-07-27] MEDS: DOXYCYCLINE HYCLATE 100 MG TABLET PO (09:09)
[2025-07-27] MEDS: APIXABAN 2.5 MG TABLET PO (09:09)
[2025-07-27] MEDS: SENNA/DOCUSATE SODIUM TABLET 2 TAB PO (09:09)
--- NOTE | 2025-07-27 12:11 | PM.EVENT ---
Event Note Event Note Event Note: Patient discharged per primary team prior to being seen by hospitalist group.
== END 2025-07-27 12:06 | disposition home or self-care (01) ==
LOC: ANHSURGERY 05:44 → ANH3MEDSUR 12:39
PROVIDERS: PCP Nurse Practitioner Family; Visit Provider Orthopaedic Surgery
PROC: (CPT 27447; principal; 2025-07-26 07:30)
DX: M17.0 Bilateral primary osteoarthritis of knee (principal); Z79.84 Long term (current) use of oral hypoglycemic drugs; Z87.891 Personal history of nicotine dependence
CPT/HCPCS: 27447; 20610; 36415; 73560; 80048; 82948; 85025; 86850; 86900; 86901; 97110; 97161; 97166; J0690; A9270; C1713; C1776; J0166; J0616; J1010; J1100; J1885; J2003; J2250; J2270; J2405; J2704; J2795; J3010; J3290; J3373; J7030; J7050; J7120